=== PATIENT | male | born 1975 | race Caucasian/White ===

== ENCOUNTER 2018-02-27 16:44 | Inpatient (IN) | payer OTHER ==
[2018-02-27 19:46] VITALS: BMI 20.3
--- NOTE | 2018-02-28 01:28 | HP ---
COWS - Scale Resting Pulse: 0= [place] 80 or Below Sweatin=Flushed/Facial Moisture Restless Observation: 0= Sits Still Pupil Size: 1= Pupils >than Normal Bone or Joint Aches: 4=Acute Joint/Muscle Pain Runny Nose/ Eye Tearin= Runny Nose/Eyes GI Upset > 30mins: 3= Vomiting/Diarrhea (vomiting x 2, diarrhea x 2) Tremor Observation: 2= Slight Tremor Visible Yawning Observation: 0= None Anxiety or Irritability: 0= None Goose Flesh Skin: 0=Smooth Skin COWS Score: 14 CIWA Score - CIWA Score Nausea/Vomitin Muscle Tremors: 3 Anxiety: 4-Mod. Anxious/Guarded Agitation: 2 Paroxysmal Sweats: No Perspiration Orientation: 1-Uncertain about Date Tacttile Disturbances: 0-None Auditory Disturbances: 0-None Visual Disturbances: 0-None Headache: 2-Mild CIWA-Ar Total Score: 15 Admission ROS S - HPI Chief Complaint: Heroin and alcohol withdrawal symptoms Allergies/Adverse Reactions: Allergies Allergy/AdvReac Type Severity Reaction Status Date / Time Fish Containing Products Allergy Verified 02/27/18 22:17 Penicillins Allergy Verified 02/27/18 22:17 History of Present Illness: 42 years old male with a long history of heroin and alcohol dependence is seeking admission to detox. Patient has been in previous detox at [facility] and reports 12 years of sobriety. He has medical history of HIV + and Hep C. He denies suicide attempt and suicidal ideation at this time. This is his first admission to [facility]. Exam Limitations: No Limitations - Ebola screening Have you traveled outside of the country in the last 21 days: No Have you had contact with anyone from an Ebola affected area: No Have you been sick,other than usual withdrawal symptoms: No Do you have a fever: No - Review of Systems Constitutional: Chills, Loss of Appetite, Malaise, Changes in sleep, Weakness, Unintentional Wgt. Loss (reports 60 pounds weight loss) EENT: reports: No Symptoms Reported Respiratory: reports: No Symptoms reported Cardiac: reports: No Symptoms Reported GI: reports: Diarrhea, Nausea, Poor Appetite, Poor Fluid Intake, Vomiting, Abdominal cramping : reports: No Symptoms Reported Musculoskeletal: reports: Back Pain Integumentary: reports: Dryness Neuro: reports: Headache, Tremors Endocrine: reports: No Symptoms Reported Hematology: reports: No Symptoms Reported Psychiatric: reports: Mood/Affect Appropiate, Orientated x3, Depressed Other Systems: Reviewed and Negative Patient History - Patient Medical History Hx Anemia: No Hx Asthma: No Hx Chronic Obstructive Pulmonary Disease (COPD): No Hx Cancer: No Hx Cardiac Disorders: No Hx Congestive Heart Failure: No Hx Hypertension: No Hx Hypercholesterolemia: No Hx Pacemaker: No HX Cerebrovascular Accident: No Hx Seizures: No Hx Dementia: No Hx Diabetes: No Hx Gastrointestinal Disorders: No Hx Liver Disease: No Hx Genitourinary Disorders: No Hx Sexually Transmitted Disorders: Yes (Hep C and HIV+) Hx Renal Disease (ESRD): No Hx Thyroid Disease: No Hx Human Immunodeficiency Virus (HIV): Yes Hx Hepatitis C: Yes Hx Depression: No Hx Suicide Attempt: No Hx Bipolar Disorder: No Hx Schizophrenia: No - Patient Surgical History Past Surgical History: No Hx Neurologic Surgery: No Hx Cataract Extraction: No Hx Cardiac Surgery: No Hx Lung Surgery: No Hx Abdominal Surgery: No Hx Appendectomy: No Hx Cholecystectomy: No Hx Genitourinary Surgery: No Hx Orthopedic Surgery: No Anesthesia Reaction: No - PPD History Previous Implant?: Yes Documented Results: Negative w/o proof Implanted On Prior [facility] Admission?: No PPD to be Administered?: Yes - Reproductive History Patient is a Female of Child Bearing Age (11 -55 yrs old): No (MALE) - Smoking Cessation Smoking history: Current every day smoker Have you smoked in the past 12 months: Yes Aproximately how many cigarettes per day: 10 Hx Chewing Tobacco Use: No Initiated information on smoking cessation: Yes 'Breaking Loose' booklet given: 02/28/18 - Substance & Tx. History Hx Alcohol Use: Yes Substance Use Type: None, Alcohol, Cocaine, Heroin Hx Substance Use Treatment: Yes ([facility]) - Substances Abused Alcohol Route: Oral Frequency: Daily Amount used: LIQUOR- 3 PINTS, BEER- 1 SIX PACK Age of first use: 19 Date of Last Use: 02/26/18 Heroin Route: Injection Frequency: Daily Amount used: 20 BAGS Age of first use: 19 Date of Last Use: 02/26/18 Family Disease History - Family Disease History Family History: Denies Admission Physical Exam [facility] - Vital Signs Vital Signs: Vital Signs - 24 hr 02/27/18 19:43 Temperature 98.1 F Pulse Rate 59 L Respiratory 16 Rate Blood Pressure 140/88 - Physical General Appearance: Yes: Moderate Distress HEENTM: Yes: EOMI, Normal ENT Inspection, Normocephalic, Normal Voice, AYESHA Respiratory: Yes: Lungs Clear, Normal Breath Sounds, No Respiratory Distress Neck: Yes: Supple Breast: Yes: Breast Exam Deferred Cardiology: Yes: Regular Rhythm, Regular Rate Abdominal: Yes: Normal Bowel Sounds Genitourinary: Yes: Within Normal Limits Back: Yes: Normal Inspection Musculoskeletal: Yes: Back pain, Muscle Pain Extremities: Yes: Tremors 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 NML intact, Alert, Normal Mood/Affect Integumentary: Yes: Warm Lymphatic: Yes: Within Normal Limits - Diagnostic (1) Alcohol dependence with uncomplicated withdrawal Current Visit: Yes Status: Chronic (2) Opioid dependence with withdrawal Current Visit: Yes Status: Chronic (3) HIV (human immunodeficiency virus infection) Current Visit: Yes Status: Chronic (4) Hep C w/o coma, chronic Current Visit: Yes Status: Chronic (5) Nicotine dependence Current Visit: Yes Status: Chronic Cleared for Admission [facility] - Detox or Rehab [facility] Level of Care: Medically Managed Detox Regimen/Protocol: Methadone/Valium [facility] Breath Alcohol Content Breath Alcohol Content: 0 Urine Drug Screen - Results Drug Screen Negative: No Urine Drug Screen Results: THC-Marijuana, PATRIZIA-Cocaine, OPI-Opiates, BZO- Benzodiazepines
[2018-02-28] MEDS ORDERED: MENTHOL/PHENOL 1 EACH UD MM PRN (01:38)
[2018-02-28] MEDS ORDERED: MAG HYDROX/AL HYDROX/SIMETH 30 ML UNIT-DOSE CUP PO PRN (01:38)
[2018-02-28] MEDS ORDERED: MAGNESIUM CITRATE 300 ML BOTTLE PO PRN (01:38)
[2018-02-28] MEDS ORDERED: P-EPHED 60MG/TRIPROLIDI 2.5MG TABLET PO PRN (01:38)
[2018-02-28] MEDS ORDERED: ACETAMINOPHEN 325 MG TABLET (FP) PO PRN (01:38)
[2018-02-28] MEDS ORDERED: MAGNESIUM HYDROX 2400MG/30ML ORAL SUSPENSION 30 ML CUP PO PRN (01:38)
[2018-02-28] MEDS ORDERED: guaiFENesin/D-METHORPHAN HB 10 ML UNIT-DOSE CUPS PO PRN (01:38)
[2018-02-28] MEDS ORDERED: diazePAM 5 MG TABLET PO ONE (01:38)
[2018-02-28] MEDS ORDERED: NICOTINE POLACRILEX 2 MG GUM BC PRN (01:38)
[2018-02-28] MEDS ORDERED: LOPERAMIDE HCL 2 MG CAPSULE PO PRN (01:38)
[2018-02-28] MEDS ORDERED: IBUPROFEN 400 MG TABLET (FP) PO PRN (01:38)
[2018-02-28] MEDS ORDERED: METHADONE HCL 10 MG TABLET (FOR DETOX USE ONLY) PO ONE ×3 (01:38→23:00)
[2018-02-28] MEDS: diazePAM 5 MG TABLET PO SCH ×3 (05:47→22:37)
[2018-02-28] MEDS: PRENATAL VITAMINS W/ FOLIC ACID TABLET (FP) PO SCH (10:25)
[2018-02-28] MEDS: NICOTINE 14 MG/24 HOURS TOPICAL PATCH TD SCH (10:26)
[2018-02-28] MEDS: diazePAM 5 MG TABLET PO PRN ×2 (10:26→19:42)
[2018-02-28] MEDS ORDERED: cloNIDine HCL 0.1 MG TABLET PO ONE (13:45)
--- NOTE | 2018-02-28 13:48 | PN ---
[facility] CIWA - CIWA Score Nausea/Vomitin-Mild Nausea/No Vomiting Muscle Tremors: 4-Moderate,w/Arms Extend Anxiety: 4-Mod. Anxious/Guarded Agitation: 4-Moderately Restless Paroxysmal Sweats: 1-Minimal Palms Moist Orientation: 1-Uncertain about Date Tacttile Disturbances: 1-Very Mild Itch/Numbness Auditory Disturbances: 0-None Visual Disturbances: 0-None Headache: 0-None Present CIWA-Ar Total Score: 16 S COWS - Scale Resting Pulse: 0= [place] 80 or Below Sweatin= Chills/Flushing Restless Observation: 3= Extraneous Movement Pupil Size: 0= Normal to Room Light Bone or Joint Aches: 2= Severe Diffuse Aches Runny Nose/ Eye Tearin= Runny Nose/Eyes GI Upset > 30mins: 2= Nausea/Diarrhea Tremor Observation of Outstretched Hands: 1= Tremor Center Line, Not Seen Yawning Observation: 1= 1-2x During Session Anxiety or Irritability: 1=Feels Anxious/Irritable Goose Flesh Skin: 3=Piloerection COWS Score: 16 [facility] Progress Note (SOAP) Subjective: joints pain body aches muscle cramp goose bumps Objective: 02/28/18 13:49 Vital Signs Temperature 98.1 F 02/28/18 13:09 Pulse Rate 77 02/28/18 13:09 Respiratory Rate 18 02/28/18 13:09 Blood Pressure 130/71 02/28/18 13:09 O2 Sat by Pulse Oximetry (%) lab noted Assessment: 02/28/18 13:49 withdrawal sx 02/28/18 13:50 hiv encourage to bring own medication to detox facility Plan: continue detox ensure 120 ml bid baclofen 10 mg tid clonidin 0.1 mg x 1
[2018-02-28] MEDS: BACLOFEN 10 MG TABLET (FP) PO SCH ×2 (14:28→22:37)
[2018-02-28] MEDS ORDERED: MELATONIN 5 MG TABLETS PO PRN (22:00)
[2018-02-28] MEDS: THIAMINE HCL 100 MG TABLET (FP) PO SCH (22:37)
[2018-03-01] MEDS: BACLOFEN 10 MG TABLET (FP) PO SCH ×3 (05:26→22:22)
[2018-03-01] MEDS: diazePAM 5 MG TABLET PO SCH ×3 (05:27→22:22)
[2018-03-01] MEDS ORDERED: METHADONE HCL 10 MG TABLET (FOR DETOX USE ONLY) PO SCH (10:00)
[2018-03-01 10:05] LABS: HEMATOCRIT 41.5 % (35.4-49); HEMOGLOBIN 13.3 GM/dL (11.7-16.9); MCH 28.2 pg (25.7-33.7); PLATELET COUNT 213 K/MM3 (134-434); RBC 4.72 M/mm3 (4.00-5.60); RDW 14.5 % (11.9-15.9); WHITE BLOOD COUNT 5.7 K/mm3 (4.0-10.0)
[2018-03-01 10:12] LABS: ALBUMIN 2.7 g/dl (3.4-5.0); CALCIUM 8.8 mg/dL (8.5-10.1); CHLORIDE 103 mmol/L (98-107); POTASSIUM 4.2 mmol/L (3.5-5.1); SODIUM 139 mmol/L (136-145)
[2018-03-01] MEDS: PRENATAL VITAMINS W/ FOLIC ACID TABLET (FP) PO SCH (10:18)
[2018-03-01] MEDS: diazePAM 5 MG TABLET PO PRN ×2 (10:18→17:58)
[2018-03-01 10:19] LABS: ALK PHOS 86 U/L (45-117); ANION GAP 8 MMOL/L (8-16); BILIRUBIN,TOTAL 0.4 mg/dL (0.2-1.0); BLOOD UREA NITROGEN 9 mg/dL (7-18); CO2 28 mmol/L (21-32); CREATININE 0.8 mg/dL (0.7-1.3); GLUCOSE,RANDOM 107 mg/dL (74-106); SGOT/AST 79 U/L (15-37); SGPT/ALT 60 U/L (12-78); TOT PROT 8.6 g/dl (6.4-8.2)
[2018-03-01] MEDS: NICOTINE 14 MG/24 HOURS TOPICAL PATCH TD SCH (10:19)
[2018-03-01] MEDS: LIDOCAINE 5% TOPICAL PATCH TP SCH (11:00)
--- NOTE | 2018-03-01 11:45 | EKG ---
Test Reason : Blood Pressure : / mmHG Vent. Rate : 051 BPM Atrial Rate : 051 BPM P-R Int : 180 ms QRS Dur : 086 ms QT Int : 468 ms P-R-T Axes : 075 066 067 degrees QTc Int : 431 ms SINUS BRADYCARDIA OTHERWISE NORMAL ECG NO PREVIOUS ECGS AVAILABLE Confirmed by RODERICK DE LEON, ROSY ([id number]) on 03/01/2018 11:45:07 AM Referred By: Confirmed By:ROSY VAUGHN MD
--- NOTE | 2018-03-01 11:46 | PN ---
S CIWA - CIWA Score Nausea/Vomitin Muscle Tremors: 2 Anxiety: 2 Agitation: 2 Paroxysmal Sweats: 3 Orientation: 0-Oriented Tacttile Disturbances: 2-Mild Itch/Numbness/Burn Auditory Disturbances: 0-None Visual Disturbances: 0-None Headache: 0-None Present CIWA-Ar Total Score: 14 [facility] COWS - Scale Resting Pulse: 0= [place] 80 or Below Sweatin=Flushed/Facial Moisture Restless Observation: 1= Difficult to Sit Still Pupil Size: 1= Pupils >than Normal Bone or Joint Aches: 2= Severe Diffuse Aches Runny Nose/ Eye Tearin= Nasal Congestion GI Upset > 30mins: 2= Nausea/Diarrhea Tremor Observation of Outstretched Hands: 2= Slight Tremor Visible Yawning Observation: 0= None Anxiety or Irritability: 1=Feels Anxious/Irritable Goose Flesh Skin: 0=Smooth Skin COWS Score: 12 [facility] Progress Note (SOAP) Subjective: interrupted sleep, sweats, shakes diarrhea lbp Objective: 03/01/18 11:43 Vital Signs Temperature 97.2 F L 03/01/18 09:38 Pulse Rate 61 03/01/18 09:38 Respiratory Rate 16 03/01/18 09:38 Blood Pressure 132/77 03/01/18 09:38 O2 Sat by Pulse Oximetry (%) Laboratory Tests 03/01/18 03/01/18 07:00 07:00 WBC 5.7 RBC 4.72 Hgb 13.3 Hct 41.5 MCV 88.0 MCH 28.2 MCHC 32.0 RDW 14.5 Plt Count 213 MPV 9.0 Sodium 139 Potassium 4.2 Chloride 103 Carbon Dioxide 28 Anion Gap 8 BUN 9 Creatinine 0.8 Creat Clearance w eGFR > 60 Random Glucose 107 H Calcium 8.8 Total Bilirubin 0.4 AST 79 H ALT 60 Alkaline Phosphatase 86 Total Protein 8.6 H Albumin 2.7 L pt aox3 in nad ambulating Assessment: 03/01/18 11:44 withdrawal sx's lbp hiv hcv Plan: cont. detox increase fluids lidocaine patch
[2018-03-01] MEDS ORDERED: cloNIDine HCL 0.1 MG TABLET PO ONE (12:35)
--- NOTE | 2018-03-01 15:47 | CONSULT ---
[facility] Psychiatric Consult - Data Date of interview: 03/01/18 Admission source: [facility] Identifying data: Patient is a 42 year old single American male, without children, unemployed, and is supported by [employer]. This is patient's first admission to detox. Pt. admitted to for alcohol, cocaine, and opiate dependence. Substance Abuse History: - Smoking Cessation. Smoking history: Current every day smoker. Have you smoked in the past 12 months: Yes. Aproximately how many cigarettes per day: 10. Hx Chewing Tobacco Use: No. Initiated information on smoking cessation: Yes. 'Breaking Loose' booklet given: 02/28/18. - Substance & Tx. History. Hx Alcohol Use: Yes. Substance Use Type: None, Alcohol, Cocaine , Heroin. Hx Substance Use Treatment: Yes ([facility]). - Substances Abused. Alcohol. Route: Oral. Frequency: Daily. Amount used: LIQUOR- 3 PINTS, BEER- 1 SIX PACK. Age of first use: 19. Date of Last Use: 02/26/18. * * Heroin. Route: Injection. Frequency: Daily. Amount used: 20 BAGS. Age of first use: 19. Date of Last Use: 02/26/18 Medical History: Hep C + HIV Psychiatric History: Patient reports two psychiatric hospitalizations while in Long Term when he was living in [place] (2005) for depression. Pt. was prescribed zoloft 50mg and Elavil (unknown dose. it was d/c due to oversedation) . He took zoloft for two years and discontinued medication after his mood improved. Pt. reports increased depression within the previous 1.5 years due to the breakup with his girlfriend. Pt. does not have motivation to find work, reports increase in substance abuse, and states his life spiraling downwards. Pt is motivated to continue detox and continue on to rehab. Pt. requesting to restart zoloft. Pt. also reports poor sleep. Pt. denies h/o suicide attempts. Pt. currently denies suicidal and homicidal ideation. Physical/Sexual Abuse/Trauma History: denies. Additional Comment: Incarcerated for 20 years for second degree murder in [place]. Mental Status Exam - Mental Status Exam Alert and Oriented to: Time, Place, Person Cognitive Function: Good Patient Appearance: Well Groomed Mood: Euthymic Affect: Mood Congruent Patient Behavior: Cooperative Speech Pattern: Appropriate Voice Loudness: Normal Thought Process: Intact, Goal Oriented Thought Disorder: Not Present Hallucinations: Denies Suicidal Ideation: Denies Homicidal Ideation: Denies Insight/Judgement: Poor Sleep: Poorly Appetite: Fair Muscle strength/Tone: Normal Gait/Station: Normal Psychiatric Findings - Problem List ([place] 1, 2,3) (1) Substance-induced sleep disorder Current Visit: Yes Status: Acute (2) Alcohol dependence with uncomplicated withdrawal Current Visit: Yes Status: Acute (3) Nicotine dependence Current Visit: Yes Status: Chronic (4) Opioid dependence with withdrawal Current Visit: Yes Status: Acute (5) Depressive disorder Current Visit: Yes Status: Acute (6) Substance induced mood disorder Current Visit: Yes Status: Acute - Initial Treatment Plan Initial Treatment Plan: Psychoeducation provided. Detoxification in progress. Zoloft 50mg + Trazodone 50mg qhs. Benefits and side effects discussed. Pt. made aware of the risk of priapism when accepting trazodone. Verbal consent given.
[2018-03-01] MEDS: THIAMINE HCL 100 MG TABLET (FP) PO SCH (22:22)
[2018-03-01] MEDS: LIDOCAINE PATCH REMOVAL MC SCH (22:22)
[2018-03-01] MEDS: traZODone HCL 50 MG TABLET (FP) PO SCH (22:22)
[2018-03-02] MEDS: BACLOFEN 10 MG TABLET (FP) PO SCH ×3 (07:06→22:06)
[2018-03-02] MEDS: diazePAM 5 MG TABLET PO PRN ×3 (09:12→19:25)
--- NOTE | 2018-03-02 09:38 | PN ---
S Progress Note (SOAP) Subjective: mild diarrhea sweat tremor body aches mild running nose Objective: 03/02/18 09:38 Vital Signs Temperature 97.9 F 03/02/18 09:01 Pulse Rate 65 03/02/18 09:01 Respiratory Rate 18 03/02/18 09:01 Blood Pressure 115/66 03/02/18 09:01 O2 Sat by Pulse Oximetry (%) Laboratory Last Values WBC 5.7 K/mm3 (4.0-10.0) 03/01/18 07:00 RBC 4.72 M/mm3 (4.00-5.60) 03/01/18 07:00 Hgb 13.3 GM/dL (11.7-16.9) 03/01/18 07:00 Hct 41.5 % (35.4-49) 03/01/18 07:00 MCV 88.0 fl (80-96) 03/01/18 07:00 MCH 28.2 pg (25.7-33.7) 03/01/18 07:00 MCHC 32.0 g/dl (32.0-35.9) 03/01/18 07:00 RDW 14.5 % (11.9-15.9) 03/01/18 07:00 Plt Count 213 K/MM3 (134-434) 03/01/18 07:00 MPV 9.0 fl (7.5-11.1) 03/01/18 07:00 Sodium 139 mmol/L (136-145) 03/01/18 07:00 Potassium 4.2 mmol/L (3.5-5.1) 03/01/18 07:00 Chloride 103 mmol/L (98-107) 03/01/18 07:00 Carbon Dioxide 28 mmol/L (21-32) 03/01/18 07:00 Anion Gap 8 MMOL/L (8-16) 03/01/18 07:00 BUN 9 mg/dL (7-18) 03/01/18 07:00 Creatinine 0.8 mg/dL (0.7-1.3) 03/01/18 07:00 Creat Clearance w eGFR > 60 (>60) 03/01/18 07:00 Random Glucose 107 mg/dL (74-106) H 03/01/18 07:00 Calcium 8.8 mg/dL (8.5-10.1) 03/01/18 07:00 Total Bilirubin 0.4 mg/dL (0.2-1.0) 03/01/18 07:00 AST 79 U/L (15-37) H 03/01/18 07:00 ALT 60 U/L (12-78) 03/01/18 07:00 Alkaline Phosphatase 86 U/L (45-117) 03/01/18 07:00 Total Protein 8.6 g/dl (6.4-8.2) H 03/01/18 07:00 Albumin 2.7 g/dl (3.4-5.0) L 03/01/18 07:00 RPR Titer Nonreactive (NONREACTIVE) 03/01/18 07:00 lab noted Assessment: 03/02/18 09:38 withdrawal sx Plan: continue detox
[2018-03-02] MEDS: SERTRALINE HCL 50 MG TABLET (FP) PO SCH (10:07)
[2018-03-02] MEDS: METHADONE HCL 5 MG TABLET (FOR DETOX USE ONLY) PO SCH (10:07)
[2018-03-02] MEDS: PRENATAL VITAMINS W/ FOLIC ACID TABLET (FP) PO SCH (10:07)
[2018-03-02] MEDS: diazePAM 5 MG TABLET PO SCH ×2 (10:07→22:06)
[2018-03-02] MEDS: NICOTINE 14 MG/24 HOURS TOPICAL PATCH TD SCH (10:08)
[2018-03-02] MEDS: LIDOCAINE 5% TOPICAL PATCH TP SCH (10:09)
[2018-03-02] MEDS: THIAMINE HCL 100 MG TABLET (FP) PO SCH (22:06)
[2018-03-02] MEDS: traZODone HCL 50 MG TABLET (FP) PO SCH (22:06)
[2018-03-02] MEDS: LIDOCAINE PATCH REMOVAL MC SCH (22:08)
[2018-03-03] MEDS: BACLOFEN 10 MG TABLET (FP) PO SCH ×3 (05:50→22:22)
[2018-03-03] MEDS: PRENATAL VITAMINS W/ FOLIC ACID TABLET (FP) PO SCH (10:04)
[2018-03-03] MEDS: NICOTINE 14 MG/24 HOURS TOPICAL PATCH TD SCH (10:05)
[2018-03-03] MEDS: diazePAM 5 MG TABLET PO SCH ×2 (10:05→22:22)
[2018-03-03] MEDS: SERTRALINE HCL 50 MG TABLET (FP) PO SCH (10:05)
[2018-03-03] MEDS: METHADONE HCL 5 MG TABLET (FOR DETOX USE ONLY) PO SCH (10:05)
[2018-03-03] MEDS: LIDOCAINE 5% TOPICAL PATCH TP SCH (10:07)
--- NOTE | 2018-03-03 12:16 | PN ---
[facility] Progress Note (SOAP) Subjective: INTERRUPTED SLEEP, SWEATS , ANXIETY SLIGHTLY BETTER Objective: 03/03/18 12:15 Vital Signs Temperature 98 F 03/03/18 09:47 Pulse Rate 68 03/03/18 09:47 Respiratory Rate 18 03/03/18 09:47 Blood Pressure 111/57 03/03/18 09:47 O2 Sat by Pulse Oximetry (%) Laboratory Tests 03/01/18 03/01/18 03/01/18 07:00 07:00 07:00 WBC 5.7 RBC 4.72 Hgb 13.3 Hct 41.5 MCV 88.0 MCH 28.2 MCHC 32.0 RDW 14.5 Plt Count 213 MPV 9.0 Sodium 139 Potassium 4.2 Chloride 103 Carbon Dioxide 28 Anion Gap 8 BUN 9 Creatinine 0.8 Creat Clearance w eGFR > 60 Random Glucose 107 H Calcium 8.8 Total Bilirubin 0.4 AST 79 H ALT 60 Alkaline Phosphatase 86 Total Protein 8.6 H Albumin 2.7 L RPR Titer Nonreactive PT AOX3 IN NAD AMBULATING Assessment: 03/03/18 12:15 WITHDRAWAL SX'S ANXIETY Plan: CONT DETOX INCREASE FLUIDS D/C IN AM
[2018-03-03] MEDS: traZODone HCL 50 MG TABLET (FP) PO SCH (22:23)
[2018-03-03] MEDS: THIAMINE HCL 100 MG TABLET (FP) PO SCH (22:23)
[2018-03-03] MEDS: LIDOCAINE PATCH REMOVAL MC SCH (22:38)
[2018-03-04] MEDS: BACLOFEN 10 MG TABLET (FP) PO SCH ×2 (07:00→14:41)
[2018-03-04] MEDS ORDERED: diazePAM 5 MG TABLET PO SCH (10:00)
[2018-03-04] MEDS ORDERED: METHADONE HCL 10 MG TABLET (FOR DETOX USE ONLY) PO SCH (10:00)
[2018-03-04] MEDS: PRENATAL VITAMINS W/ FOLIC ACID TABLET (FP) PO SCH (10:36)
[2018-03-04] MEDS: SERTRALINE HCL 50 MG TABLET (FP) PO SCH (10:36)
[2018-03-04] MEDS: LIDOCAINE 5% TOPICAL PATCH TP SCH (10:36)
[2018-03-04] MEDS: NICOTINE 14 MG/24 HOURS TOPICAL PATCH TD SCH (10:36)
[2018-03-04 12:58] LABS: URINE APPEARANCE CLEAR; URINE BILIRUBIN NEGATIVE (<2.0 mg/dL); URINE COLOR LTYELLOW; URINE GLUCOSE (UA) NEGATIVE (NEGATIVE); URINE KETONE NEGATIVE (NEGATIVE); URINE LEUK ESTERASE NEGATIVE (NEGATIVE); URINE NITRITE NEGATIVE (NEGATIVE); URINE PROTEIN NEGATIVE (NEGATIVE); URINE UROBILINOGEN NEGATIVE mg/dL (0.2-1.0)
--- NOTE | 2018-03-04 14:32 | PN ---
[facility] Progress Note (SOAP) Subjective: pt states he is feeling fine, without complaints O: Vital Signs - 24 hr 03/03/18 03/03/18 03/03/18 14:38 18:08 22:11 Temperature 98.1 F 98.4 F 98.2 F Pulse Rate 76 69 75 Respiratory 18 16 16 Rate Blood Pressure 118/69 121/65 115/70 03/04/18 03/04/18 03/04/18 00:30 07:39 08:47 Temperature 97.5 F L 97.9 F Pulse Rate 80 79 Respiratory 18 18 18 Rate Blood Pressure 118/62 131/68 03/04/18 14:11 Temperature 99.1 F Pulse Rate 78 Respiratory 16 Rate Blood Pressure 118/76 Laboratory Tests 03/01/18 03/01/18 03/01/18 07:00 07:00 07:00 WBC 5.7 RBC 4.72 Hgb 13.3 Hct 41.5 MCV 88.0 MCH 28.2 MCHC 32.0 RDW 14.5 Plt Count 213 MPV 9.0 Sodium 139 Potassium 4.2 Chloride 103 Carbon Dioxide 28 Anion Gap 8 BUN 9 Creatinine 0.8 Creat Clearance w eGFR > 60 Random Glucose 107 H Calcium 8.8 Total Bilirubin 0.4 AST 79 H ALT 60 Alkaline Phosphatase 86 Total Protein 8.6 H Albumin 2.7 L Urine Color Urine Appearance Urine pH Ur Specific [place] Urine Protein Urine Glucose (UA) Urine Ketones Urine Blood Urine Nitrite Urine Bilirubin Urine Urobilinogen Ur Leukocyte Esterase RPR Titer Nonreactive 03/04/18 10:15 WBC RBC Hgb Hct MCV MCH MCHC RDW Plt Count MPV Sodium Potassium Chloride Carbon Dioxide Anion Gap BUN Creatinine Creat Clearance w eGFR Random Glucose Calcium Total Bilirubin AST ALT Alkaline Phosphatase Total Protein Albumin Urine Color Ltyellow Urine Appearance Clear Urine pH 6.0 Ur Specific [place] 1.012 Urine Protein Negative Urine Glucose (UA) Negative Urine Ketones Negative Urine Blood Negative Urine Nitrite Negative Urine Bilirubin Negative Urine Urobilinogen Negative Ur Leukocyte Esterase Negative RPR Titer nl VS and ess nl labs a/p: continue detox protocol
[2018-03-04 17:59] VITALS: BP 114/67; PULSE 75; TEMP 98.2
--- NOTE | 2018-03-04 18:16 | DS ---
[facility] Detox Discharge Summary Admission Date: 02/27/18 Discharge Date: 03/04/18 - History Present History: Alcohol Dependence, Opioid Dependence Additional Comments: 42 years old male with a long history of heroin and alcohol dependence was here for detox. Patient has been in previous detox at [facility] and reports 12 years of sobriety. He has medical history of HIV + and Hep C. He denies suicide attempt and suicidal ideation at this time. This is his first admission to [facility]. Pt recieved methadone 10mg today. Says he is going to [place] to see his mother who has cancer- - Physical Exam Results Vital Signs: Vital Signs Temperature 98.2 F 03/04/18 17:59 Pulse Rate 75 03/04/18 17:59 Respiratory Rate 18 03/04/18 17:59 Blood Pressure 114/67 03/04/18 17:59 O2 Sat by Pulse Oximetry (%) - Treatment Hospital Course: Detox Protocol Followed, Detoxed Safely, Responded well, Discharged Condition Good - Medication Discharge Medications: Ambulatory Orders Elviteg/Cob/Emtri/Tenof Alafen [Genvoya Tablet] 1 each PO DAILY 02/27/18 - AMA Did Patient Leave Against Medical Advice: No
[2018-03-05] MEDS ORDERED: METHADONE HCL 5 MG TABLET (FOR DETOX USE ONLY) PO SCH (06:00)
== END 2018-03-04 18:23 | disposition home or self-care (01) | DRG 773 ==
LOC: YASAS 16:44 → Y6N 23:06
PROC: HZ2ZZZZ Detoxification Services for Substance Abuse Treatment (ICD-10-PCS; principal; 2018-02-27)
DX: F11.23 Opioid dependence with withdrawal (principal); F10.230 Alcohol dependence with withdrawal, uncomplicated; F17.210 Nicotine dependence, cigarettes, uncomplicated; F19.24 Other psychoactive substance dependence with psychoactive substance-induced mood disorder; F19.282 Other psychoactive substance dependence with psychoactive substance-induced sleep disorder; F32.9 Major depressive disorder, single episode, unspecified; Z21 Asymptomatic human immunodeficiency virus [HIV] infection status; B18.2 Chronic viral hepatitis C; Z88.0 Allergy status to penicillin; Z91.013 Allergy to seafood
CPT/HCPCS: 36415; 80053; 81003; 85027; 86593; 93005; 93010; J0475; J0735